=== PATIENT | male | born 1960 ===

== ENCOUNTER 2017-08-22 11:42 | Emergency (ER) | payer BC, OTHER ==
[2017-08-22 14:20] VITALS: BP 146/97
--- NOTE | 2017-08-22 14:52 | UC ---
General HPI - HPI Summary HPI Summary: pt is c/o a "dull pain" to his R upper arm and shoulder. it first began about 4- 5 days ago and roused his from sleep. it continues to come and go since then. he notes it more with computer use. he also notes it sometimes "feels asleep" as well. he can get relief with aleve and some times placing the arm over his head or by shaking the arm. he denies any exertional component, cp, sob, nausea , HAJI, weakness and sweating. he denies any hx htn, dm, cardiac and fmh cardiac disease. he also offers that when he has roused with this his arm had been hanging off the bed. he admits to sometimes having neck pain. pt states " I read 24/7 Card and was worried it is cancer". - History of Current Complaint Chief Complaint: UCUpperExtremity Stated Complaint: RIGHT SHOULDER PAIN Time Seen by Provider: 08/22/17 14:42 Hx Obtained From: Patient Pain Intensity: 4 Associated Signs & Symptoms: Positive: Wheezing - from copd which is not changed. Negative: Cough, Chest Pain, Diaphoresis, Edema, SOB - Allergy/Home Medications Allergies/Adverse Reactions: Allergies Allergy/AdvReac Type Severity Reaction Status Date / Time phenobarbital Allergy See Comment Verified 08/22/17 14:21 strawberry Allergy Rash Verified 08/22/17 14:21 Home Medications: Home Medications Albuterol inh POWDER (NF) [Proair Respiclick] 108 mcg IN DAILY PRN 08/22/17 [ History Confirmed 08/22/17] Naproxen TAB* [Naprosyn 250 mg TAB*] 250 mg PO Q8H PRN 08/22/17 [History Confirmed 08/22/17] Saw [place] Fruit [Saw [place]mira] 450 mg PO DAILY 08/22/17 [History Confirmed ] PMH/Surg Hx/FS Hx/Imm Hx Respiratory History: Asthma - Surgical History Surgical History: Yes Surgery Procedure, Year, and Place: Hernia repair. carpal tunnel - Family History Known Family History: Negative: Cardiac Disease - Social History Occupation: Employed Full-time Lives: With Family Alcohol Use: Occasionally Substance Use Type: None Smoking Status (MU): Former Smoker Type: Cigarettes Amount Used/How Often: 2 PPD Length of Time of Smoking/Using Tobacco: 28 Years Have You Smoked in the Last Year: No When Did the Patient Quit Smoking/Using Tobacco: ~2005 - Immunization History Most Recent Influenza Vaccination: Not the season Vaccination Up to Date: Yes Review of Systems Constitutional: Negative Skin: Negative Eyes: Negative ENT: Negative Respiratory: Negative Cardiovascular: Negative Gastrointestinal: Negative Genitourinary: Negative Motor: Negative Neurovascular: Negative Musculoskeletal: Other: - RUE pain Neurological: Negative Psychological: Negative Is Patient Immunocompromised?: No All Other Systems Reviewed And Are Negative: Yes Physical Exam Triage Information Reviewed: Yes Appearance: Well-Appearing Vital Signs: Initial Vital Signs Temp 98.4 F 08/22/17 14:04 Pulse 96 08/22/17 14:04 Resp 18 08/22/17 14:04 BP 146/97 08/22/17 14:04 Pulse Ox 95 08/22/17 14:04 Vital Signs Reviewed: Yes Eyes: Positive: Conjunctiva Clear ENT: Positive: Pharynx normal, TMs normal. Negative: Nasal congestion, Nasal drainage Neck: Positive: Supple, Nontender, No Lymphadenopathy, Other: - c-spine is non tender. Respiratory: Positive: Chest non-tender, Lungs clear, Normal breath sounds Cardiovascular: Positive: RRR, No Murmur, Pulses Normal, Brisk Capillary Refill Abdomen Description: Positive: Nontender, No Organomegaly, Soft Bowel Sounds: Positive: Present Musculoskeletal: Positive: Other: - BUE: No gross deformity, swelling or discoloration and full s/v/m is intact. Neurological: Positive: Alert Psychological: Positive: Age Appropriate Behavior Skin Exam: Normal Course/Dx - Course Course Of Treatment: pt refused c-spine xrays and ekg citing not needed. hx most c/w radiculopathy. low risk for cardiac pathology. no concern for dissection. will tx nsaid and f/u pcp duncan. advised go to Er for any changes or worsening. - Differential Dx - Multi-Symptom Provider Diagnoses: RUE radiculopathy Discharge - Sign-Out/Discharge Documenting (check all that apply): Discharge/Admit/Transfer - Discharge Plan Condition: Stable Disposition: HOME Prescriptions: Naproxen [Naprosyn 500 mg tab] 500 mg PO BID #14 tablet Patient Education Materials: Cervical Radiculopathy (ED) Referrals: Noble Slade MD [Primary Care Provider] - As Soon As Possible - Billing Disposition and Condition Condition: STABLE Disposition: HOME
== END 2017-08-22 15:08 | disposition home or self-care (01) ==
LOC: UCCORT 11:42
DX: M54.10 Radiculopathy, site unspecified (principal); Z88.8 Allergy status to other drugs, medicaments and biological substances; Z91.018 Allergy to other foods; J45.909 Unspecified asthma, uncomplicated; Z87.891 Personal history of nicotine dependence
CPT/HCPCS: 99212; G0463